=== PATIENT | male | born 1995 | race Caucasian/White ===

== ENCOUNTER 2018-11-15 14:14 | Emergency (ER) | payer OTHER ==
[~2018-11-15] VITALS: Ht 170.2 cm; Wt 88.6 kg
[2018-11-15] MEDS ORDERED: LIDOCAINE 1% 10 ML VIAL INJ ONE (17:00)
[2018-11-15] MEDS ORDERED: PERTUSS(ACELL),DIPH,TET VAC/PF 0.5 ML VIAL IM ONE (17:00)
[2018-11-15] MEDS ORDERED: BUPIVACAINE HCL/PF 0.25% 10 ML VIAL INJ ONE (17:00)
[2018-11-15] MEDS ORDERED: BACITRACIN 0.9 GM PACKET OINTMENT TP ONE (18:15)
[2018-11-15 18:52] VITALS: BP 134/73
== END 2018-11-15 19:01 | disposition home or self-care (01) ==
LOC: EMS 14:14
DX: S61.011A Laceration without foreign body of right thumb without damage to nail, initial encounter (principal); Z88.0 Allergy status to penicillin; Z88.1 Allergy status to other antibiotic agents; R03.0 Elevated blood-pressure reading, without diagnosis of hypertension; W26.8XXA Contact with other sharp object(s), not elsewhere classified, initial encounter; Y93.89 Activity, other specified; Y92.89 Other specified places as the place of occurrence of the external cause; Y99.8 Other external cause status
CPT/HCPCS: 12001; 90471; 90715; 99283; J3490 ×2